=== PATIENT | female | born 1965 | race African-American/Black ===

== ENCOUNTER 2016-06-08 13:54 | Emergency (ER) | payer OTHER ==
[~2016-06-08] VITALS: Ht 157.5 cm; Wt 127.0 kg
[~2016-06-08 13:54] MED LIST: MOTR200T PO
[2016-06-08 13:55] VITALS: BP 125/60; PULSE 65; RESP 17; TEMP 98.1; O2SAT 98
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
[2016-06-08 16:47] LABS: BASOPHIL % 0.4 % (0.0-2.0); EOSINOPHIL # 0.1 TH/MM3 (0-0.4); HEMATOCRIT 36.9 % (35.0-46.0); HEMO FLAGS DIFF FINAL; LYMPH % 20.9 % (9.0-44.0); MEAN CELL VOLUME 91.3 FL (80.0-100.0); MEAN CORPUSCULAR HEMOGLOBIN 30.8 PG (27.0-34.0); MEAN CORPUSCULAR HGB CONC 33.7 % (32.0-36.0); MONO % 6.3 % (0.0-8.0); NEUT % 71.4 % (16.0-70.0); PLATELET COUNT 209 TH/MM3 (150-450); RED BLOOD COUNT 4.04 MIL/MM3 (4.00-5.30); RED CELL DISTRIBUTION WIDTH 13.6 % (11.6-17.2); WHITE BLOOD COUNT 9.8 TH/MM3 (4.0-11.0)
[2016-06-08 17:15] LABS: ANION GAP 7 MEQ/L (5-15); AST (GOT) 20 U/L (15-37); BICARBONATE 29.3 MEQ/L (21.0-32.0); BLOOD UREA NITROGEN 14 MG/DL (7-18); CHLORIDE 104 MEQ/L (98-107); GLOMERULAR FILTRATION RATE 74 ML/MIN (>89); POTASSIUM 3.6 MEQ/L (3.5-5.1); SODIUM (NA) 140 MEQ/L (136-145)
[2016-06-08 17:18] LABS: ALKALINE PHOSPHATASE 103 U/L (45-117); ALT (GPT) 24 U/L (10-53); TOTAL BILIRUBIN ADULT 0.4 MG/DL (0.2-1.0)
[2016-06-08] MEDS ORDERED: IOHEXOL 350 MG/ML 10 ML VIAL (for RAD DIAG) IV ONE (17:46)
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
[2016-06-08] MEDS ORDERED: TRAM50TA PO (18:05)
[2016-06-08] MEDS ORDERED: IBUP800T23 PO (18:07)
[2016-06-08] MEDS ORDERED: CYCL1TAB29 PO (18:07)
[2016-06-08] MEDS ORDERED: KETOROLAC TROMETHAMINE 30 MG/ML (IVP) VIAL IV PUSH ONE (18:15)
[2016-06-08] MEDS ORDERED: ORPHENADRINE INJ 60 MG/2 ML AMP IV ONE (18:15)
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
[2016-06-08 18:43] VITALS: BP 130/78
== END 2016-06-08 18:44 | disposition home or self-care (01) ==
LOC: NEPE 13:54
DX: S30.1XXA Contusion of abdominal wall, initial encounter (principal); S60.511A Abrasion of right hand, initial encounter; R07.89 Other chest pain; V49.49XA Driver injured in collision with other motor vehicles in traffic accident, initial encounter; Y93.89 Activity, other specified; Y92.410 Unspecified street and highway as the place of occurrence of the external cause
CPT/HCPCS: 71020; 73130; 74177; 80053; 85025; 96374; 96375; 99284; J1885; J2360; Q9967